=== PATIENT | female | born 1955 | race Caucasian/White ===

== ENCOUNTER 2018-11-29 15:52 | Observation (INO) ==
[2018-11-29] MEDS ORDERED: NS 500 ML IV ONE (16:32)
--- NOTE | 2018-11-29 16:49 | Diag Imaging Result Doc PS360 ---
CHEST-PORTABLE - 11/29/2018 INDICATION: ams COMPARISON: None FINDINGS: There is mild cardiomegaly and pulmonary vascular congestion. No infiltrates or edema. No pneumothorax or pleural effusion. IMPRESSION: Cardiomegaly and pulmonary vascular congestion. Electronically signed by Ernie Patel 11/29/2018 4:47 PM
[2018-11-29 16:56] LABS: ALLEN TEST NO; BE 6.8 mmoll (-3.0-3.0); BLOOD TYPE ARTERIAL; HCO3-(ACT) 30.1 mmoll (20.0-26.0); METHB 1.4 % (0.0-1.5); O2(CT) 17.9 mL/dL (15.0-23.0); O2HB 92.1 % (95.0-99.0); PO2(98.6) 66 mmHg (60-100); SAMPLE BLOOD; SAO2 95.2 % (95.0-100.0); THB 13.8 g/dL (11.5-17.4); pH(98.6) 7.41 (7.35-7.45)
[2018-11-29 16:58] LABS: MODALITY CANNULA; PCO2(98.6) 52 mmHg (35-45)
[2018-11-29 17:31] LABS: BASO# 0.07 X1000 (0.0-0.2); BASO% 0.8 % (0.0-0.8); EOS% 2.2 % (0.0-10.0); HEMATOCRIT 41.6 % (37.0-47.0); HEMOGLOBIN 13.9 g/dL (12.0-16.0); IMM GRAN# 0.02 X1000 (0.0-0.04); IMM GRAN% 0.2 % (0.0-0.5); LYMPH# 3.05 X1000 (1.2-3.4); LYMPH% 33.7 % (20.5-51.1); MCHC 33.4 g/dL (33-37); MCV 92.7 FL (81-99); MONO# 0.43 X1000 (0.11-0.59); MONO% 4.7 % (1.7-9.3); MPV 10.6 FL (7.4-10.4); NEUT# 5.29 X1000 (1.4-6.5); NEUT% 58.4 % (42.2-75.2); PLT 241 X1000 (130-400); RBC 4.49 XMIL (4.2-5.4); RDW 13.2 % (11.5-14.5); WBC 9.06 X1000 (4.8-10.8)
[2018-11-29 17:38] LABS: INR 0.89; PROTIME 12.8 Seconds (11.0-16.0)
[2018-11-29 17:39] LABS: PTT 24.7 Seconds (22.3-41.8)
[2018-11-29 17:54] LABS: AGAP 13; ALB/GLOB RATIO 1.4; ALBUMIN 3.9 g/dL (3.5-5.0); ALKALINE PHOSPHATASE 74 U/L (32-104); BUN 11 mg/dL (8-22); CALCIUM 8.9 mg/dL (8.8-10.2); CHLORIDE 102 mmol/L (98-107); COSMO 291; CREATININE 0.7 mg/dL (0.5-0.9); ESTIMATED GFR > 60; GLUCOSE 124 mg/dL (70-104); GOT 24 U/L (10-30); GPT 22 U/L (10-36); POTASSIUM 3.2 mmol/L (3.5-5.1); SODIUM 146 mmol/L (136-145); TCO2 31 mmol/L (25-35); TOTAL BILIRUBIN 0.15 mg/dL (0.20-1.00); TOTAL PROTEIN 6.6 g/dL (6.3-8.3)
[2018-11-29 17:56] LABS: URINE SOURCE CATH
[2018-11-29 18:00] LABS: BILIRUBIN URINE NEGATIVE (NEGATIVE); BLOOD URINE MODERATE (NEGATIVE); COLOR YELLOW; GLUCOSE URINE NEGATIVE (NEGATIVE); KETONE URINE NEGATIVE (NEGATIVE); LEUKOCYTES URINE NEGATIVE (NEGATIVE); NITRITE URINE NEGATIVE (NEGATIVE); PH URINE 6.5; PROTEIN URINE 200 mg/dL (NEGATIVE); SP GRAVITY URINE 1.015; TURBIDITY URINE CLEAR (CLEAR); UR EPITHELIAL CELLS <10 /HPF (<10); URINE BACTERIA NEGATIVE /HPF; URINE RBC TNTC /HPF (<10); URINE WBC <10 /HPF (<10); UROBILINOGEN URINE NORMAL (NORMAL)
[2018-11-29 18:06] LABS: ACETAMINOPHEN < 1.2 ug/mL (10-30); SALICYLATES < 3.00 mg/dL (3-10)
[2018-11-29 18:10] LABS: UR AMPHETAMINES QUAL NONE DETECTED (NONE DETECT); UR BARBITUATES QUAL NONE DETECTED (NONE DETECT); UR BENZODIAZEPIN QUAL PRESUMPTIVE POSITIVE (NONE DETECT); UR CANNABINOIDS QUAL NONE DETECTED (NONE DETECT); UR COCAINE QUAL NONE DETECTED (NONE DETECT); UR METHADONE QUAL NONE DETECTED (NONE DETECT); UR OPIATES QUAL NONE DETECTED (NONE DETECT); UR OXYCODONE QUAL NONE DETECTED (NONE DETECT); UR PCP QUAL NONE DETECTED (NONE DETECT)
--- NOTE | 2018-11-29 18:35 | PROVIDER DOCUMENTATION ---
This chart was entered by Tanvi Crook Scribe, acting as scribe for Alxex Arizmendi MD. HPI-General Adult - General Source: patient, family, EMS Unable to obtain history due to:: altered - History of Present Illness -Gen Adult Nature of Presenting Problems: 63 yowf presents t the ed via ems from [facility] in [place]. pt sister wa s with pt and sts had a normal lunch and then pt begin to become sleepy and could not stay awake. at [facility] sts his has done this in the past with soma prescription. sts she gets her medication at the end of the month and she has a problem taking the soma. pt got medication filled soma 350mg 2 days prior qty-24 pt has 7 left and prescribe to take x1 daily. pt has diazepam 30 qty filled same day and all medication is still in bottle. sts this is how she does with overdose the past 2x Location of Pain/Injury: reports: none Pain Radiation: reports: no radiation Quality of Pain: reports: none Severity: reports: moderate Onset/Duration: reports: just prior to arrival Timing: reports: still present, constant Context/Activities at Onset: reports: other (possible od) Modifying Factors: worse with: other medication (soma) Associated Symptoms: reports: fatigue. denies: back/neck pain, chest pain, diarrhea, fever/chills, nausea, shortness of breath Similar Symptoms Previously?: Yes (OD in past) Recently seen or treated by another doctor?: Yes (pcp) <Alexx Arizmendi - Last Filed: 11/29/18 18:35> <Loree Cosme - Last Filed: 11/29/18 20:43> - General Chief Complaint: Unresponsive Stated Complaint: LETHARGIC Time Seen by Provider: 11/29/18 16:20 Allergies/Adverse Reactions: Patient Allergies Allergy/AdvReac Type Severity Reaction Status Date / Time No Known Allergies Allergy Verified 11/29/18 18:02 Review of Systems - Adult - REVIEW OF SYSTEMS - ADULT ROS:: ROS per family Constitutional: reports: no symptoms reported Eyes: reports: no symptoms reported Ears, Nose, Mouth & Throat: reports: no symptoms reported Cardiovascular: denies: chest pain, palpitations Respiratory: denies: shortness of breath, wheezing Gastrointestinal: denies: diarrhea, vomiting Genitourinary: reports: no symptoms reported Musculoskeletal: reports: no symptoms reported Integumentary: reports: no symptoms reported Neurological: reports: see HPI, other (ams) Psychiatric: reports: no symptoms reported Endocrine: reports: no symptoms reported Hematologic/Lymphatic: reports: no symptoms reported Allergic/Immunologic: reports: no symptoms reported All Other Systems: Reviewed and Negative <Alexx Arizmendi - Last Filed: 11/29/18 18:35> Past History - Adult - PAST MEDICAL HISTORY-ADULT Review of Records: reports: Nursing Assessment Review, Medications Reviewed Major Childhood Illnesses: reports: denies history Cardiovascular: reports: HTN Respiratory: reports: denies history Gastrointestinal: reports: GERD Obstetrical/Gynecological: reports: denies history Genitourinary: reports: denies history Musculoskeletal: reports: denies history Neurological: reports: denies history Psychiatric: reports: other (has overdose in past on soma per at bedside) Endocrine/Immune: reports: denies history Other Conditions: reports: denies history - PRIOR SURGERIES/PROCEDURES Surgical/Procedure History: reports: reviewed, not pertinent - IMMUNIZATION STATUS Childhood Immunizations: See Nurse Assessment Flu Vaccine: See Nurse Assessment - FAMILY HISTORY Family History: reviewed, not pertinent - SOCIAL HISTORY Smoking: denies Substance Use: other (soma) Alcohol Use Frequency: twice a week (on weekends) Number of drinks per typical drinking period:: 3-4 drinks Living Situation: family <Alexx Arizmendi - Last Filed: 11/29/18 18:35> Physical Exam-General - PHYSICAL EXAM-ADULT Exam Limited by: pt is sleepy awakes to loud verbal stimuli Initial Vital Signs Reviewed: Yes - CONSTITUTIONAL General Appearance: obese, slow to respond. negative: alert - EYES Eyes: PERRL/EOMI, pink conjunctivae - HEAD, EARS, NOSE, MOUTH & THROAT HENMT: moist mucous membranes - NECK Neck: supple, normal inspection - RESPIRATORY Respiratory: chest non-tender, lungs clear, normal breath sounds - CARDIOVASCULAR Cardiovascular: normal peripheral pulses, tachycardia (109) - GASTROINTESTINAL (ABDOMEN) Abdominal Exam: normal bowel sounds, non tender, soft - LYMPHATIC Lymphatic: no adenopathy - MUSCULOSKELETAL Back Exam: other (not checked due to pt lying on back sleeping) Extremity: pelvis stable - SKIN Integumentary: normal color, normal turgor, warm/dry - PSYCHIATRIC Psych/Mental Status: other (awakes to loud verbal stimuli but quickly goes back to sleep) <Alexx Arizmendi - Last Filed: 11/29/18 18:35> Progress - PLAN OF CARE/RESULTS Progress/Plan/Lab Results: Laboratory Results - last 24 hr 11/29/18 16:02 POC Glucose 126 H Orders Category Date Time Status CHEST-PORTABLE [RAD] Stat Exams 11/29/18 16:28 Taken ABG [RESP] Routine Lab 11/29/18 16:28 Ordered ALCOHOL BLOOD Stat Lab 11/29/18 16:28 Uncollected CBC WITH ELECTRONIC DIFF [HEME] Stat Lab 11/29/18 16:28 Uncollected COMPREHENSIVE METABOLIC PANEL [CHEM] Stat Lab 11/29/18 16:28 Uncollected PROTIME WITH INR [COAG] Stat Lab 11/29/18 16:28 Uncollected PTT [COAG] Stat Lab 11/29/18 16:28 Uncollected TROPONIN T Stat Lab 11/29/18 16:28 Uncollected URINALYSIS W/POSS RFLX CULT [URINALYSIS] Stat Lab 11/29/18 16:28 Uncollected URINE DRUG SCREEN Stat Lab 11/29/18 16:28 Uncollected 0.9% Sodium Chloride Inj [Ns] 500 ml Med 11/29/18 16:32 Active IV 999 mls/hr Result Diagrams: 11/29/18 17:10 11/29/18 17:10 - REASSESSMENT Reassessment #1 Time Reassessed: 16:57 Status: unchanged - EKG 1 Time of EKG reading by physician:: 16:08 EKG Read and Signed by:: Alexx Arizmendi EKG Interpretation (*Must complete 3 of following elements*): Abnormal Rate: 126 Rhythm: sinus tachycardia [place]: normal QRS: LVH (with repolarization abnormality) NE Interval: normal ST Wave: normal Comments: infeerior posterior infarct, age undetermined 2 Time of EKG reading by physician:: 16:15 EKG Read and Signed by:: Alexx Arizmendi EKG Interpretation (*Must complete 3 of following elements*): Abnormal Rate: 112 Rhythm: sinus tachycardia [place]: left (deviation) QRS: other (biatrial enlargement) NE Interval: normal ST Wave: normal Prior EKG Comparison: changes noted Comments: pulmonary disease pattern - XRAY 1 XRAY: Bilateral XRAY Study: Chest Impression: See EMR Report (CHEST-PORTABLE - 11/29/2018 INDICATION: ams AMANDA RISON: None FINDINGS: There is mild cardiomegaly and pulmonary vascular congestion. No infiltrates or edema. No pneumothorax or pleural effusion. IMPRESSION: Cardiomegaly and pulmonary vascular congestion. Electronically signed by Ernie Patel 11/29/2018 4:47 PM 11/29/18 1647 Interpreting Physician: Ernie Patel MD Dictated Date/Time: 11/29/18 1646 cc: Alexx Arizmendi MD; None,PCP) <Alexx Arizmendi - Last Filed: 11/29/18 18:35> - PLAN OF CARE/RESULTS Progress/Plan/Lab Results: Vital Signs - 8 hr 11/29/18 16:00 11/29/18 16:02 11/29/18 16:07 Temperature 98.5 F Pulse Rate 132 H 133 H 129 H Respiratory Rate 19 14 23 Blood Pressure 154/92 189/134 O2 Sat by Pulse Oximetry 95 91 L 11/29/18 16:10 11/29/18 16:15 11/29/18 16:20 Temperature Pulse Rate 124 H 122 H 117 H Respiratory Rate 21 17 18 Blood Pressure 154/92 O2 Sat by Pulse Oximetry 90 L 90 L 88 L 11/29/18 16:30 11/29/18 16:31 11/29/18 16:40 Temperature Pulse Rate Respiratory Rate Blood Pressure 148/102 O2 Sat by Pulse Oximetry 97 96 95 11/29/18 16:50 11/29/18 17:00 11/29/18 17:01 Temperature Pulse Rate Respiratory Rate Blood Pressure 147/76 O2 Sat by Pulse Oximetry 95 98 93 L 11/29/18 17:10 11/29/18 17:20 11/29/18 17:30 Temperature Pulse Rate 106 H 108 H 112 H Respiratory Rate 16 19 18 Blood Pressure O2 Sat by Pulse Oximetry 95 97 95 11/29/18 17:31 11/29/18 17:40 Temperature Pulse Rate 112 H 108 H Respiratory Rate 20 15 Blood Pressure 166/101 O2 Sat by Pulse Oximetry 96 99 Laboratory Results - last 24 hr 11/29/18 11/29/18 11/29/18 16:02 16:48 17:10 WBC RBC Hgb Hct MCV MCH MCHC RDW Std Deviation Plt Count MPV Immature Gran % (Auto) Neut % (Auto) Lymph % (Auto) [place] % (Auto) Eos % (Auto) Baso % (Auto) Immature Gran # (Auto) Neut # (Auto) Lymph # (Auto) [place] # (Auto) Eos # (Auto) Baso # (Auto) PT INR PTT (Actin FS) Specimen Type ARTERIAL Sample Site R BRACHIAL pH 7.41 pCO2 52 H* pO2 66 HCO3 30.1 H Base Excess 6.8 H Oxyhemoglobin 92.1 L ABG O2 Sat (Calculated) 17.9 ABG O2 Saturation 95.2 ABG Carboxyhemoglobin 1.90 ABG Methemoglobin 1.4 Cameron Test NO A-a O2 Difference 69.0 Total Hemoglobin 13.8 Lactate 2.20 Liter Flow 2.0 Blood Gas Modality CANNULA FiO2 % 28.0 Sodium Potassium Chloride Carbon Dioxide Anion Gap BUN Creatinine Estimated GFR/1.73 m2 BUN/Creatinine Ratio Glucose POC Glucose 126 H Calculated Osmolality Calcium Total Bilirubin AST ALT Alkaline Phosphatase Troponin T Total Protein Albumin Globulin Albumin/Globulin Ratio Urine Source Urine Color Urine Turbidity Urine pH Ur Specific Sandy Urine Protein Ur Glucose (Stick) Ur Ketones (Stick) Urine Blood Urine Nitrite Urine Bilirubin Urobilinogen Dipstick Urine Leukocytes Urine WBC (Auto) Urine RBC (Auto) U Epithel Cells (Auto) Urine Bacteria (Auto) Salicylates Urine Opiates Screen Ur Oxycodone Screen Ur Methadone, Qual Acetaminophen Ur Barbiturates Screen Ur Phencyclidine Scrn Ur Amphetamines Screen U Benzodiazepines Scrn Urine Cocaine Screen U Cannabinoids Screen Plasma/Serum Ethyl Alc 11/29/18 11/29/18 11/29/18 17:10 17:10 17:10 WBC 9.06 RBC 4.49 Hgb 13.9 Hct 41.6 MCV 92.7 MCH 31.0 MCHC 33.4 RDW Std Deviation 13.2 Plt Count 241 MPV 10.6 H Immature Gran % (Auto) 0.2 Neut % (Auto) 58.4 Lymph % (Auto) 33.7 [place] % (Auto) 4.7 Eos % (Auto) 2.2 Baso % (Auto) 0.8 Immature Gran # (Auto) 0.02 Neut # (Auto) 5.29 Lymph # (Auto) 3.05 [place] # (Auto) 0.43 Eos # (Auto) 0.20 Baso # (Auto) 0.07 PT 12.8 INR 0.89 PTT (Actin FS) 24.7 Specimen Type Sample Site pH pCO2 pO2 HCO3 Base Excess Oxyhemoglobin ABG O2 Sat (Calculated) ABG O2 Saturation ABG Carboxyhemoglobin ABG Methemoglobin Cameron Test A-a O2 Difference Total Hemoglobin Lactate Liter Flow Blood Gas Modality FiO2 % Sodium 146 H Potassium 3.2 L Chloride 102 Carbon Dioxide 31 Anion Gap 13 BUN 11 Creatinine 0.7 Estimated GFR/1.73 m2 > 60 BUN/Creatinine Ratio 16 Glucose 124 H POC Glucose Calculated Osmolality 291 Calcium 8.9 Total Bilirubin 0.15 L AST 24 ALT 22 Alkaline Phosphatase 74 Troponin T Total Protein 6.6 Albumin 3.9 Globulin 2.7 Albumin/Globulin Ratio 1.4 Urine Source Urine Color Urine Turbidity Urine pH Ur Specific Sandy Urine Protein Ur Glucose (Stick) Ur Ketones (Stick) Urine Blood Urine Nitrite Urine Bilirubin Urobilinogen Dipstick Urine Leukocytes Urine WBC (Auto) Urine RBC (Auto) U Epithel Cells (Auto) Urine Bacteria (Auto) Salicylates Urine Opiates Screen Ur Oxycodone Screen Ur Methadone, Qual Acetaminophen Ur Barbiturates Screen Ur Phencyclidine Scrn Ur Amphetamines Screen U Benzodiazepines Scrn Urine Cocaine Screen U Cannabinoids Screen Plasma/Serum Ethyl Alc 11/29/18 11/29/18 11/29/18 17:10 17:10 17:40 WBC RBC Hgb Hct MCV MCH MCHC RDW Std Deviation Plt Count MPV Immature Gran % (Auto) Neut % (Auto) Lymph % (Auto) [place] % (Auto) Eos % (Auto) Baso % (Auto) Immature Gran # (Auto) Neut # (Auto) Lymph # (Auto) [place] # (Auto) Eos # (Auto) Baso # (Auto) PT INR PTT (Actin FS) Specimen Type Sample Site pH pCO2 pO2 HCO3 Base Excess Oxyhemoglobin ABG O2 Sat (Calculated) ABG O2 Saturation ABG Carboxyhemoglobin ABG Methemoglobin Cameron Test A-a O2 Difference Total Hemoglobin Lactate Liter Flow Blood Gas Modality FiO2 % Sodium Potassium Chloride Carbon Dioxide Anion Gap BUN Creatinine Estimated GFR/1.73 m2 BUN/Creatinine Ratio Glucose POC Glucose Calculated Osmolality Calcium Total Bilirubin AST ALT Alkaline Phosphatase Troponin T < 0.010 Total Protein Albumin Globulin Albumin/Globulin Ratio Urine Source CATH Urine Color YELLOW Urine Turbidity CLEAR Urine pH 6.5 Ur Specific Sandy 1.015 Urine Protein 200 A Ur Glucose (Stick) NEGATIVE Ur Ketones (Stick) NEGATIVE Urine Blood MODERATE A Urine Nitrite NEGATIVE Urine Bilirubin NEGATIVE Urobilinogen Dipstick NORMAL Urine Leukocytes NEGATIVE Urine WBC (Auto) <10 Urine RBC (Auto) TNTC A U Epithel Cells (Auto) <10 Urine Bacteria (Auto) NEGATIVE Salicylates < 3.00 L Urine Opiates Screen Ur Oxycodone Screen Ur Methadone, Qual Acetaminophen < 1.2 L Ur Barbiturates Screen Ur Phencyclidine Scrn Ur Amphetamines Screen U Benzodiazepines Scrn Urine Cocaine Screen U Cannabinoids Screen Plasma/Serum Ethyl Alc 11/29/18 17:40 WBC RBC Hgb Hct MCV MCH MCHC RDW Std Deviation Plt Count MPV Immature Gran % (Auto) Neut % (Auto) Lymph % (Auto) [place] % (Auto) Eos % (Auto) Baso % (Auto) Immature Gran # (Auto) Neut # (Auto) Lymph # (Auto) [place] # (Auto) Eos # (Auto) Baso # (Auto) PT INR PTT (Actin FS) Specimen Type Sample Site pH pCO2 pO2 HCO3 Base Excess Oxyhemoglobin ABG O2 Sat (Calculated) ABG O2 Saturation ABG Carboxyhemoglobin ABG Methemoglobin Cameron Test A-a O2 Difference Total Hemoglobin Lactate Liter Flow Blood Gas Modality FiO2 % Sodium Potassium Chloride Carbon Dioxide Anion Gap BUN Creatinine Estimated GFR/1.73 m2 BUN/Creatinine Ratio Glucose POC Glucose Calculated Osmolality Calcium Total Bilirubin AST ALT Alkaline Phosphatase Troponin T Total Protein Albumin Globulin Albumin/Globulin Ratio Urine Source Urine Color Urine Turbidity Urine pH Ur Specific [place] Urine Protein Ur Glucose (Stick) Ur Ketones (Stick) Urine Blood Urine Nitrite Urine Bilirubin Urobilinogen Dipstick Urine Leukocytes Urine WBC (Auto) Urine RBC (Auto) U Epithel Cells (Auto) Urine Bacteria (Auto) Salicylates Urine Opiates Screen NONE DETECTED Ur Oxycodone Screen NONE DETECTED Ur Methadone, Qual NONE DETECTED Acetaminophen Ur Barbiturates Screen NONE DETECTED Ur Phencyclidine Scrn NONE DETECTED Ur Amphetamines Screen NONE DETECTED U Benzodiazepines Scrn PRESUMPTIVE POSITIVE A Urine Cocaine Screen NONE DETECTED U Cannabinoids Screen NONE DETECTED Plasma/Serum Ethyl Alc Orders Category Date Time Status Suarez Cath Insertion ORDERED Care 11/29/18 17:44 Completed CHEST-PORTABLE [RAD] Stat Exams 11/29/18 16:[address] HEAD W/O CONTRAST [CT] Stat Exams 11/29/18 18:27 Completed ABG [RESP] Routine Lab 11/29/18 16:48 Completed ACETAMINOPHEN [TDM] Stat Lab 11/29/18 17:10 Completed ALCOHOL BLOOD Stat Lab 11/29/18 17:10 Completed CBC WITH ELECTRONIC DIFF [HEME] Stat Lab 11/29/18 17:10 Completed COMPREHENSIVE METABOLIC PANEL [CHEM] Stat Lab 11/29/18 17:10 Completed PROTIME WITH INR [COAG] Stat Lab 11/29/18 17:10 Completed PTT [COAG] Stat Lab 11/29/18 17:10 Completed SALICYLATES [TDM] Stat Lab 11/29/18 17:10 Completed TROPONIN T Stat Lab 11/29/18 17:10 Completed URINALYSIS W/POSS RFLX CULT [URINALYSIS] Stat Lab 11/29/18 17:40 Completed URINE DRUG SCREEN Stat Lab 11/29/18 17:40 Completed 0.9% Sodium Chloride Inj [Ns] 500 ml Med 11/29/18 16:32 Discontinued IV 999 mls/hr Result Diagrams: 11/29/18 17:10 11/29/18 17:10 - REASSESSMENT Reassessment #2 Status: improving (pt signed out to me pending CT Head results. CTH unremarkable, continued confusion but improving. Will admit per Dr. Arizmendi's plan. Discussed case with Dr. Fermin, hospitialist, who will see and admit pt.) - CT/MRI 1 CT Study: Head ( FINDINGS: There is some minimal deep cerebral white matter chronic microvascular disease. The ventricles and sulci are normal in size and contour. No intracranial mass or hemorrhage. The skull is intact. The sinuses mastoids and middle ears are clear. IMPRESSION: Minimal cerebral white matter chronic microvascular disease. No acute disease.) <Loree Cosme - Last Filed: 11/29/18 20:43> Departure <Alexx Arizmendi - Last Filed: 11/29/18 18:35> - Departure Date of Disposition Decision: 11/29/18 Time of Disposition Decision: 20:43 Certified Medical Emergency: Emergent - Critical Care Note This patient required my direct & personal management of CC.: No <Loree Cosme - Last Filed: 11/29/18 20:43> - Departure DIAGNOSIS: Benzodiazepine misuse Altered mental state Qualifiers: Altered mental status type: unspecified Qualified Code(s): R41.82 - Altered mental status, unspecified Disposition: ADMITTED INPATIENT 09 Condition: Good Referrals and Follow-Ups: None,PCP [NON-STAFF PROVIDER] - Attestation - Physician/ LYNN Attestation Patient care was provided by Advanced Practice Provider:: No The physician spent face to face time with patient:: Yes Advanced Practice Provider documentation review:: Supervising physician onsite and consulted in the evaluation and care of this patient. The physician did have a face to face encounter with the patient. <Alexx Arizmendi - Last Filed: 11/29/18 18:35> This chart was documented by the indicated scribe, (Tanvi Crook Scribe) and accurately reflects the services I performed and decisions made by me, Alexx Arizmendi MD, as attested by the provider's signature.
--- NOTE | 2018-11-29 19:15 | Diag Imaging Result Doc PS360 ---
CT HEAD W/O CONTRAST - 11/29/2018 INDICATION: ams COMPARISON: None FINDINGS: There is some minimal deep cerebral white matter chronic microvascular disease. The ventricles and sulci are normal in size and contour. No intracranial mass or hemorrhage. The skull is intact. The sinuses mastoids and middle ears are clear. IMPRESSION: Minimal cerebral white matter chronic microvascular disease. No acute disease. This exam was performed using automated exposure control, adjustment of mA or kV according to patient size, and/or use of iterative reconstruction technique Electronically signed by Ernie Patel 11/29/2018 7:12 PM
[2018-11-29] MEDS ORDERED: PRILOSEC PO ONE (21:36)
[2018-11-29] MEDS ORDERED: POTASSIUM CHLORIDE 40 MEQ in NS 1,000 ML IV ONE (21:40)
[2018-11-29] MEDS ORDERED: TYLENOL PO PRN (22:52)
[2018-11-29] MEDS ORDERED: ZOFRAN IV PRN (22:52)
--- NOTE | 2018-11-30 03:26 | HISTORY AND PHYSICAL ---
CHIEF COMPLAINT: Altered mentation. HISTORY OF PRESENT ILLNESS: This is a 63-year-old female who was at a restaurant with her family and became very lethargic. Most of the details here are from the ER notes because the patient cannot provide too much, but she was in a [employer], she was with her sister. She had become sleepy, could not stay awake. says she usually does this when she gets Soma medication. She was also prescribed diazepam. The Soma she has probably over taken, it was filled about 2 days ago for 24, and she has already taken 17 of those. Supposed to be only taken once a day, so she has taken a decent amount here. Now, she denies any suicidal ideation. She denies over taking the medication. She keeps on saying she slipped on some gravel. says she has had this reaction to Soma before. There has been "an overdose," but again it was not a intentional, not sure if it is recreational or just over taking her medication for effect. In any case, the patient is lethargic, but she opens her eyes, she follows simple commands. She answers questions but she cannot really give me a lot of pertinent information. Her memory recall is very poor. She does say she drinks regularly. PAST MEDICAL HISTORY: Hypertension, GERD. She did admit to GERD. She denies any other medical history. PAST SURGICAL HISTORY: I really could not obtain, it is not clear per record. SOCIAL HISTORY: She drinks a couple times 3 to 4 drinks, but this is variable. She may drink more than that, but today alcohol level was normal. No tobacco, reportedly. ALLERGIES: No known drug allergies. MEDICATIONS: Xanax was filled, she is on Protonix per Dr. Betancourt. She had 10 mg of Valium filled, #30 for a month, and it was just filled yesterday. Soma was just filled yesterday, 350 mg and she had 24 of those, actually 30 because she for some reason has 2 different prescriptions for a total of 30. What is interesting is that there is a prescription on the for Soma and Valium then too, there is 2 separate prescriptions, I do not know if they were both filled, maybe one was lost, not quite clear here. She had a prescription for hydrocodone filled on 11/01, which she should not still have that. That is really the only medications she takes besides Protonix. She is also on Lexapro, it looks like. I do not see any antihypertensives though. She has been on alendronate. FAMILY HISTORY: Denies. REVIEW OF SYSTEMS: No chest pain, palpitation, shortness of breath, wheezing. No diarrhea, vomiting. She reports no syncope. She denies over taking her medications. Otherwise, negative times a 10 point review of systems. PHYSICAL EXAMINATION: VITAL SIGNS: Blood pressure currently is 166/101, heart rate 108, respiratory rate of 15, temperature was 98.5 degrees. GENERAL: A well-developed female, in no acute distress. EYE: Pupils equal, round, reactive to light. Sclerae are anicteric. NECK: Supple. EAR, NOSE, THROAT: She had moist mucous membranes. CARDIOVASCULAR: Regular rate and rhythm. PULMONARY: Bilateral breath sounds clear to auscultation. GASTROINTESTINAL: Soft, nontender, nondistended. Bowel sounds are positive. MUSCULOSKELETAL: 4/5 in all 4 extremities. NEUROLOGIC: Nonfocal. SKIN: Clean, dry, intact. LABORATORY DATA: White count is normal. CBC looked fine. Blood gas, she had a little bit of CO2 retention but normal pH. Sodium 146, potassium 3.4, rest of the tests were normal. Urine showed a lot of red blood cells, but besides that, really unremarkable. UDS just had benzos, which she does take Valium. ASSESSMENT: 1. This is a 63-year-old female presenting with altered mentation, most likely related to medications. She takes Soma and Valium, and they may have had an untoward effect on her. We will continue supportive care, hydration and monitoring. We will follow closely and discuss altering her regimens. 2. Hypokalemia, hypernatremia. We will continue fluids, supplement her potassium, and follow. 3. Gastroesophageal reflux disease. We will continue her proton pump inhibitor and monitor. DISPOSITION: Pending her clinical status. We will continue to follow closely. cc: MD Yecenia Montgomery MD
[2018-11-30] MEDS: PRILOSEC PO SCH (06:14)
[2018-11-30] MEDS: NS 1,000 ML IV SCH ×2 (06:14→09:00)
[2018-11-30 06:29] LABS: BASO# 0.06 X1000 (0.0-0.2); BASO% 0.7 % (0.0-0.8); EOS# 0.25 X1000 (0.0-0.7); EOS% 2.9 % (0.0-10.0); HEMATOCRIT 39.1 % (37.0-47.0); HEMOGLOBIN 12.7 g/dL (12.0-16.0); IMM GRAN# 0.02 X1000 (0.0-0.04); IMM GRAN% 0.2 % (0.0-0.5); LYMPH# 2.48 X1000 (1.2-3.4); LYMPH% 29.1 % (20.5-51.1); MCH 30.8 PG (27-31); MCHC 32.5 g/dL (33-37); MCV 94.7 FL (81-99); MONO# 0.44 X1000 (0.11-0.59); MONO% 5.2 % (1.7-9.3); MPV 10.6 FL (7.4-10.4); NEUT# 5.28 X1000 (1.4-6.5); NEUT% 61.9 % (42.2-75.2); PLT 241 X1000 (130-400); RBC 4.13 XMIL (4.2-5.4); RDW 13.6 % (11.5-14.5); WBC 8.53 X1000 (4.8-10.8)
[2018-11-30 06:50] LABS: AGAP 14; ALB/GLOB RATIO 1.2; ALBUMIN 3.5 g/dL (3.5-5.0); ALKALINE PHOSPHATASE 67 U/L (32-104); BUN 7 mg/dL (8-22); CALCIUM 8.4 mg/dL (8.8-10.2); CHLORIDE 107 mmol/L (98-107); COSMO 288; CREATININE 0.5 mg/dL (0.5-0.9); ESTIMATED GFR > 60; GLUCOSE 95 mg/dL (70-104); GOT 20 U/L (10-30); GPT 19 U/L (10-36); POTASSIUM 3.2 mmol/L (3.5-5.1); SODIUM 146 mmol/L (136-145); TCO2 25 mmol/L (25-35); TOTAL BILIRUBIN 0.21 mg/dL (0.20-1.00); TOTAL PROTEIN 6.4 g/dL (6.3-8.3)
--- NOTE | 2018-11-30 09:39 | Diag Imaging Result Doc PS360 ---
CT RENAL STONE SEARCH - 11/29/2018 INDICATION: hematuria COMPARISON: None FINDINGS: The lung bases are clear and the heart size is normal. No radiodense renal stones. No hydronephrosis or hydroureter. No bowel obstruction or inflammation. Abdominal organs are grossly normal. There is a Suarez catheter in the urinary bladder which is decompressed. Uterus is absent. Rectum is normal. Bones are intact. IMPRESSION: Negative exam. This exam was performed using automated exposure control, adjustment of mA or kV according to patient size, and/or use of iterative reconstruction technique Electronically signed by Ernie Patel 11/30/2018 9:36 AM
[2018-11-30] MEDS ORDERED: BLISTEX MEDICATED BERRY LIP BALM TOP ONE (17:01)
--- NOTE | 2018-11-30 19:02 | PROGRESS NOTE ---
DATE: 11/30/2018 SUBJECTIVE: This morning, Ms. Adkins refers to be doing a whole lot better. She is more awake, alert. She is conversational and she wants to eat some food. OBJECTIVE: Vital signs: Blood pressure is 167/79, pulse of 85, respirations 16, temperature 98.1. The patient is saturating 99%. General Exam: Ms. Adkins is a 66-year-old, female. She is in bed. No distress. Mucosa is pink and moist. Anicteric. Acyanotic. Neck: Supple. Chest: Clear to auscultation. No crepitations. No rhonchi. Cardiovascular: Regular rate and rhythm. Abdomen: Soft, nontender. Bowel sounds present. Extremities: No pedal edema. 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 There is no focal neurological deficit. LABORATORY DATA: Has been reviewed. CBC is completely normal. Chemistry has also been reviewed, is normal except potassium is 3.2. Imaging studies have all been reviewed. ASSESSMENT: 1. Altered mental status on presentation secondary to prescription drug-induced encephalopathy, improved. 2. Prescription drug use and abuse. 3. Clinical volume depletion, improved. 4. Hypokalemia. So today, Ms. Adkins seems to be doing a whole lot better. We are going to discontinue the Suarez catheter, discontinue the IV fluids. We will start her on regular diet. She has been advised on the cautious use of prescription drugs. We will plan to discharge Ms. Adkins tomorrow if she continues to be stable. cc: Sridhar Pascual MD
[2018-12-01] MEDS: PRILOSEC PO SCH (06:21)
[2018-12-01 08:30] VITALS: BP 180/89
--- NOTE | 2018-12-01 15:28 | DISCHARGE SUMMARY ---
ADMISSION DATE: 11/29/2018 DISCHARGE DATE: 12/01/2018 DISPOSITION: Home. FOLLOWUP: Will be with patient's PCP. ADMISSION DIAGNOSES: 1. Altered mental status, likely related to medications. 2. Hypokalemia and hyponatremia. DIAGNOSES AT THE TIME OF DISCHARGE: 1. Altered mental status on presentation secondary to prescription drug-induced encephalopathy. 2. Prescription drug use and abuse (Soma). 3. Clinical volume depletion, improved. 4. Hypokalemia, replenished. DISCHARGE MEDICATIONS: None. PRESENTING COMPLAINT: Altered mental status. HISTORY OF PRESENTING COMPLAINT: Ms. Adkins is a 63-year-old female who is hypertensive, controlled on diet, who came to the emergency department because of altered mental status. We understand the patient was given a prescription for Soma and within 2 days she had taken about 17 pills of that. Subsequently she became extremely lethargic and unresponsive, was brought into the emergency department, was found to be completely altered, was admitted for further medical care. HOSPITAL COURSE: Ms. Adkins was admitted to the medical floor under telemonitoring, was adequately hydrated. All sedatives were discontinued. Imaging studies were also done including a chest x-ray, CT scan of the head and renal CT, which were all within normal range. She did respond well to management. Mentation significantly improved, and she started eating. Suarez catheter was discontinued. This morning she feels a whole lot better. She has been up and walking around. We have discussed extensively about the immediate and chronic side effects of opioids and sedatives use, and she voiced understanding. We think Ms. Adkins is clinically stable for discharge. All the discharge instructions have been discussed with her. She voiced understanding. DISCHARGE PHYSICAL EXAMINATION: Current vitals: Blood pressure is 171/90, pulse of 81, respirations 18, temperature is 97.8 degrees. Current physical exam is completely unremarkable. Ms. Adkins is tolerating her diet and also had bowel movement so she will be discharged in stable condition. TIME SPENT FOR DISCHARGE: 33 minutes. cc: Sridhar Pascual MD
--- NOTE | 2018-12-02 08:31 | EKG Report ---
Test Performed on : 11/29/2018 4:08:47 PM Test Reason : ED. NO EKG ORDER FOR MUSE Blood Pressure : / mmHG Vent. Rate : 123 BPM Atrial Rate : 123 BPM P-R Int : 148 ms QRS Dur : 102 ms QT Int : 332 ms P-R-T Axes : 052 -02 070 degrees QTc Int : 475 ms Sinus tachycardia. Left ventricular hypertrophy with repolarization abnormality Inferior-posterior infarct (cited on or before 29-NOV-2018) Abnormal ECG When compared with ECG of 29-NOV-2018 16:08, (Unconfirmed) No significant change was found Unconfirmed Result
== END 2018-12-01 12:56 | disposition home or self-care (01) ==
LOC: SUPCPDRO → ED 15:52 → 4N 22:18 → SUATTDRO 22:18 → INTOOBSV 22:18
PROVIDERS: ATTEND Internal Medicine
CPT/HCPCS: 51702; 70450; 71010; 71045; 74176; 80053; 80101; 80196; 80301; 80307; 80320; 80324; 80329; 80345; 80346; 80353; 80358; 80361; 80365; 81001; 82003; 82055; 82805; 82948; 83992; 84443; 84484; 85025; 85610; 85730; 93005; 96361; 96365; 99285; A9270; G0431; G0434; G0479; G0480; G6038; G6039; G6040; J3480; J7030; J7040; XXXXX